=== PATIENT | male | born 1945 | race Caucasian/White ===

== ENCOUNTER 2016-12-19 09:55 | Emergency (ER) | payer MEDICARE, OTHER ==
[~2016-12-19] VITALS: Ht 185.4 cm; Wt 122.7 kg
[~2016-12-19 09:55] MED LIST: CARV6.252 PO; LISI30TA5 PO; LORA0.5T PO; OMPR20CCR PO; SIMV20TA4 PO; Tylenol PO
--- NOTE | 2016-12-19 10:05 | ED.REPORT ---
HPI-Trauma Minor / Fall Date of Service Dec 19, 2016 ED Provider: Dr. Harris Pt is a 71 year old male with a hx of HTN and CAD presenting to the ED after falling while getting onto his crabbing boat just prior to arrival. His family is concerned that he has decreased level of consciousness. Pt reports having a few beers this morning. He complains of left leg numbness and tingling and LE weakness. He reports that his legs gave out as he was stepping on the boat, and he fell forward onto the boat. Medics report that a 12 lead EKG in the field shows RBBB. He denies losing consciousness, neck pain, or any other symptoms at this time. Pt is currently being treated for a staph infection. Nursing Notes Stated Complaint: DECREASE LEVEL OF CONSCIOUSNESS Chief Complaint: Decreased level of consciousness Nursing Notes Reviewed: Yes Allergies: Coded Allergies: Aminoglycosides (Verified Allergy, Severe, 04/16/09) bacitracin (Verified Allergy, Severe, 04/16/09) neomycin (Verified Allergy, Severe, 12/17/09) polymyxin B (Verified Allergy, Severe, 04/16/09) Uncoded Allergies: benedryl (Allergy, Unknown, "I get HTN and nose bleeds"., 04/16/04) Scheduled ([Tylenol]) 500 MG PO DAILY 3 to 6 per day prn Carvedilol (Carvedilol) 6.25 Mg Tablet 6.25 MG PO BID Lisinopril (Lisinopril) 30 Mg Tablet 30 MG PO DAILY Omeprazole (Prilosec) 20 Mg Capcr 20 MG PO BID Simvastatin (Simvastatin) 20 Mg Tablet 20 MG PO HS Scheduled PRN Lorazepam (Lorazepam) 0.5 Mg Tablet 0.5 MG PO TID PRN PRN neck pain General Time Seen by MD: 10:05 Chief Complaint Fall Hx Obtained From: Patient, EMS Arrived By: Ambulance Onset Occurred: Just prior to arrival Symptom Duration: Since onset Caused by: Fall on ground Location: No Neck Severity: Current: No pain currently Severity: Maximum: No pain Recent Healthcare: No recent doctor visit, No recent hospitalization Similar Sx Previous: No Risk Factors Nexus C-Spine Criteria No post midline tendernes Head CT Imaging Inclusion Criteria: >/= 16 yo age Presentation w/in 24 hrs. Patient Presents WITHOUT: Loss of Conciousness, PostTraumatic Amnesia, PROCEED W/ CONSIDERATIONS Consider Non Contrast CT for: >/= 60 yo Age WITHOUT LOC WITHOUT PostTrauma AmnesiNo Severe Headache, No Vomiting RF Statements: Risk factors reviewed Past Medical History Past Medical History Coronary artery disease Hypertension Borderline diabetic Past Surgical History denies Family History Noncontributory Smoking History Never Smoker Social History Other Social History: Good social support, , Local resident Ambulatory Status Independent Review of Systems Musculoskeletal: Denies: Neck pain Neurologic: Reports: Change LOC, Weakness, Denies: Headache Complete sys rev & neg: except as marked. Physical Exam Initial Vital Signs Vital Signs (First) Date Time Temp Pulse Resp B/P Pulse Ox O2 Delivery O2 Flow Rate FiO2 12/19/16 10:11 78 14 126/79 97 Room Air Initial VS: Reviewed ENT: Mucous membranes moist, Conjunctiva normal, No scleral icterus Respiratory: Breath sounds normal, Clear to auscultation, No respiratory distress Cardiovascular: Regular rate & rhythm, Heart sounds normal, Intact distal pulses Abdomen / GI: Soft, Non-tender, No guarding, No rebound, No distention Extremities: Vascular intact, Neuro intact, No swelling, No tenderness Neurologic: Alert, Oriented, Nonfocal Psychiatric: Mood/affect normal, Behavior normal, Normal thought content General/Constitutional: Awake, Alert, Well appearing Behavior: Positive: Appears intoxicated Neck: Atraumatic, Supple, No meningismus, Full range of motion, No adenopathy, No swelling, Non-tender, No midline vertebral tend Head / Eyes: Atraumatic, Normocephalic, PERRL No evidence of head trauma Skin: Atraumatic, Color NL, No rash, Warm, Dry, Intact Superficial abrasions over left knee Neurologic: Oriented X3, No motor deficits, No sensory deficits, CN II - XII intact Slightly slurred speech. Strength 5/5 all extremities. Interpretation & Diagnostics Interpretation & Diagnostics: Blood Alcohol 284 Lab Results Interpretation Result Diagram: 12/19/16 1059 12/19/16 1059 Test 12/19/16 10:59 12/19/16 11:00 White Blood Count 6.5th/mm3 (3.8-10.1) Red Blood Count 4.36mil/mm3 (4.40-5.80) Hemoglobin 14.5g/dL (13.8-17.2) Hematocrit 43.2% (41.0-50.0) Mean Corpuscular Volume 99.1fL (81-100) Mean Corpuscular Hemoglobin 33.3pg (27.0-35.0) Mean Corpuscular Hemoglobin Concent 33.6% (32.0-37.0) Red Cell Distribution Width 13.1% (12.3-15.4) Platelet Count 217bil/L (150-400) Neutrophils (%) (Auto) 47.9% (40-74) Lymphocytes (%) (Auto) 42.0% (14-46) Monocytes (%) (Auto) 6.5% (4-12) Eosinophils (%) (Auto) 2.9% (0-5) Basophils (%) (Auto) 0.5% (0-3) Prothrombin Time 10.6sec (8.1-12.5) Prothromb Time International Ratio 0.99ratio Sodium Level 138mEq/L (134-144) Potassium Level 4.1mEq/L (3.5-5.2) Chloride Level 99mEq/L (97-108) Carbon Dioxide Level 21mmol/L (18-29) Blood Urea Nitrogen 24mg/dL (8-27) Creatinine 1.11mg/dL (0.76-1.27) Estimat Glomerular Filtration Rate 69mL/min (>59) Glucose Level 123mg/dL (60-99) Calcium Level 9.2mg/dL (8.5-10.1) Total Bilirubin 0.4mg/dL (0.0-1.2) Aspartate Amino Transf (AST/SGOT) 45U/L (0-50) Alanine Aminotransferase (ALT/SGPT) 36U/L (0-44) Alkaline Phosphatase 48U/L (25-160) Total Protein 7.5g/dL (6.4-8.4) Albumin 3.7g/dL (3.4-5.0) Hold [place] Top Tube Received (Received) ECG Interpretation ECG Interpretation: RBBB. Unchanged from old EKG. Time: 10:23 Interpreted by: ED physician Normal ECG Interpretation: Normal rate (78), Normal sinus rhythm X-Ray Interpretation Xray Interpretation: IMPRESSION: 1. No fracture or subluxation. 2. Mild osteoarthritic changes in the medial compartment. 3. Nonspecific chondrocalcinosis may reflect CPPD arthropathy. Dictated by: Daquan Jacobs M.D. on 12/19/2016 at 11:02 X-Ray Ordered: Knee left Interpretation / Wet Read by: Interpret - Radiologist CT Head Interpretation IMPRESSION: 1. No acute intracranial abnormality. 2. Mild chronic white matter small vessel ischemic changes and cerebral volume loss. Dictated by: Daquan Jacobs M.D. on 12/19/2016 at 10:42 Study: Head CT no contrast Interpretation / Wet Read by: Interpret - Radiologist CT C-Spine Interpretation IMPRESSION: 1. No fracture or subluxation. 2. Multilevel degenerative changes of the cervical spine including mild to moderate degenerative disc disease inferiorly. Dictated by: Daquan Jacobs M.D. on 12/19/2016 at 10:45 Study type: CT no contrast Interpretation / Wet Read by: Interpret - Radiologist Re-Eval/Medical Decision Med Decision/Clinical Course 71-year-old male history of alcohol abuse presenting as ground-level fall while intoxicated on his crabbing boat. Unknown loss of consciousness. Denies any chest pain or cardiac prodrome. Patient was intoxicated but alcohol level was 270 on arrival. After 4 hours of observation he was ambulatory with only his chronic left leg weakness as difficulty. His labs are unremarkable. Patient refused further care and requests to go home. He was discharged home in the care of his who is completely sober and agreed to stay with patient. Advised to return if he has any new or worsening headache, neurological deficits, difficulty ambulating, since symptoms are gone which are all, any other new or worsening symptoms. Re-Evaluation/Progress #1: Time of Eval: 10:45 Patient Status: Condition improved Re-Evaluation/Progress Note: Spoke to the pt's about his alcohol use. She would like him to seek treatment. He states that he is an alcoholic and does not want to seek treatment. Re-Evaluation/Progress #2: Time of Eval: 11:20 Patient Status: Condition improved Re-Evaluation/Progress Note: Discussed CT and x ray results and plan for discharge. Pt understands and agrees with plan. Re-Evaluation/Progress #3: Time of Eval: 13:34 Patient Status: Condition improved Re-Evaluation/Progress Note: Discussed plan for MRI. Re-Evaluation/Progress #4: Time of Eval: 14:24 Patient Status: Condition improved Re-Evaluation/Progress Note: The pt reports that he is unable to go into the MRI machine due to chronic shoulder pain. He reports that he is unable to keep his arm by his side for long enough to go in the MRI machine. Re-Evaluation/Progress #5: Time of Eval: 14:48 Patient Status: Condition improved Re-Evaluation/Progress Note: Pt insists that he wants to go home instead of getting an MRI. Pt is ambulatory and ready to go home. Consultation : Call Returned at: 13:30 Note: Consultation with physical therapy. He recommends an MRI due to left sided weakness. Counseled Regarding: Diagnosis, Lab results, Need for follow-up, When/why to return to ED Discharge & Departure Impression: Primary Impression: Fall from ground level Additional Impressions: Head trauma Encounter type: initial encounter Qualified Code: S09.90XA - Unspecified injury of head, initial encounter Alcohol intoxication Complication of substance-induced condition: uncomplicated Qualified Code: F10.120 - Alcohol abuse with intoxication, uncomplicated Disposition: Home Discharge Condition All VS Reviewed: Yes Condition: Improved Patient Instructions: Concussion (ED) Additional Instructions: Return to the emergency room if you develop any new or worsening symptoms such as confusion, headaches, vomiting, numbness, weakness, tingling, or fevers. Follow up with your primary care doctor to for resources to help you stop drinking. Return to the ER with any symptoms of alcohol withdrawal such as shaking, confusion or seizures. Referrals: Houston Marshall MD (PCP) Hugh Todd MD Attestation Portions of this note were transcribed by Danika Graf. I, Dr. Harris personally performed the history, physical exam and medical decision-making; I reviewed and confirmed the accuracy of the information in the transcribed note. Signed by: Mauricio Zaldivar, 12/19/2016 at 1500. copies to: Hugh Todd MD; Houston Marshall MD, Ben M MD Dec 19, 2016 10:05 DANIKA GRAF Dec 19, 2016 10:16
[2016-12-19 10:11] VITALS: BP 126/79; PULSE 78; RESP 14; O2SAT 97
[2016-12-19] MEDS ORDERED: 0.9% Sodium Chloride 1,000 ML IV ONE (10:14)
--- NOTE | 2016-12-19 10:52 | DRSVH ---
PROCEDURE: CT BRAIN WITHOUT CONTRAST ([id number]) INDICATIONS: head trauma TECHNIQUE: Noncontrast 4.5 mm thick angled axial sections acquired from the foramen magnum to the vertex, with c oronal reformats. COMPARISON: None. FINDINGS: Image quality: Excellent. CSF spaces: Basal cisterns are patent. No extra-axial fluid collections. The ventricles are symmet dionte in size and shape. There is mild cerebral volume loss, with resultant ventricular and sulcal pro minence. Brain: No intracranial hemorrhage, mass, or mass effect. There are subcortical, periventricular and deep white matter hypodensities consistent with mild chronic small vessel ischemic changes. There i s intracranial internal carotid artery atherosclerosis. Skull and face: Calvarium and visualized facial bones appear intact, without suspicious lesions. Sinuses: Visualized sinuses and mastoids are clear. IMPRESSION: 1. No acute intracranial abnormality. 2. Mild chronic white matter small vessel ischemic changes and cerebral volume loss. Dictated by: Daquan Jacobs M.D. on 12/19/2016 at 10:42 Approved by: Daquan Jacobs M.D. on 12/19/2016 at 10:45
--- NOTE | 2016-12-19 10:55 | DRSVH ---
PROCEDURE: CT CERVICAL SPINE WITHOUT CONTRAST ([id number]) INDICATIONS: head trauma TECHNIQUE: Noncontrast 3 mm thick sections acquired from the skull base to the T4 level. Sagittal and coronal r eformats were then constructed. For radiation dose reduction, the following was used: automated exp osure control, adjustment of mA and/or kV according to patient size. COMPARISON: None. FINDINGS: Image quality: There is mild motion artifact. Bones: No fractures or dislocations. There is multilevel disc space narrowing in the cervical spine including mild/moderate narrowing inferiorly. There is also mild multilevel uncovertebral and facet joint arthropathy. There is moderate degeneration at the atlantoaxial joint. Visualized superior r ibs are intact. Soft tissues: Prevertebral soft tissues are normal in thickness. No paravertebral hematomas. No ap ical pneumothoraces. IMPRESSION: 1. No fracture or subluxation. 2. Multilevel degenerative changes of the cervical spine including mild to moderate degenerative dis c disease inferiorly. Dictated by: Daquan Jacobs M.D. on 12/19/2016 at 10:45 Approved by: Daquan Jacobs M.D. on 12/19/2016 at 10:47
[2016-12-19 11:06] LABS: BASOPHILS % (AUTO) 0.5 % (0-3); EOSINOPHILS % (AUTO) 2.9 % (0-5); MONOCYTES % (AUTO) 6.5 % (4-12); Mean Corpuscular Hemoglobin 33.3 pg (27.0-35.0); Mean Corpuscular Volume 99.1 fL (81-100); NEUTROPHILS % (AUTO) 47.9 % (40-74); Platelet Count 217 bil/L (150-400)
--- NOTE | 2016-12-19 11:19 | DRSVH ---
PROCEDURE: X-RAY LEFT KNEE, ONE OR TWO VIEWS ([id number]) INDICATIONS: trauma TECHNIQUE: 3 views of the knee were acquired. COMPARISON: None. FINDINGS: Bones: No fractures or dislocations. There is mild joint space narrowing in the medial compartment with mild osteophytosis. No suspicious bony lesions. Soft tissues: There is a small joint effusion. There is chondrocalcinosis. IMPRESSION: 1. No fracture or subluxation. 2. Mild osteoarthritic changes in the medial compartment. 3. Nonspecific chondrocalcinosis may reflect CPPD arthropathy. Dictated by: Daquan Jacobs M.D. on 12/19/2016 at 11:02 Approved by: Daquan Jacobs M.D. on 12/19/2016 at 11:12
[2016-12-19 11:22] LABS: INR 0.99 ratio
[2016-12-19 15:01] VITALS: BP 126/79; PULSE 78; RESP 14; O2SAT 97
== END 2016-12-19 15:02 | disposition home or self-care (01) ==
LOC: EDSEX 09:55 → EDBD 09:55 → SED 09:55
DX: S09.90XA Unspecified injury of head, initial encounter (principal); S80.212A Abrasion, left knee, initial encounter; F10.120 Alcohol abuse with intoxication, uncomplicated; R53.1 Weakness; W19.XXXA Unspecified fall, initial encounter; Y93.89 Activity, other specified; Y92.9 Unspecified place or not applicable; Y99.8 Other external cause status; Z88.1 Allergy status to other antibiotic agents; Z88.8 Allergy status to other drugs, medicaments and biological substances; I25.10 Atherosclerotic heart disease of native coronary artery without angina pectoris; R73.03 Prediabetes
CPT/HCPCS: 36415; 70450; 72125; 73560; 80053; 81002; 82075; 85025; 85610; 93005; 97162; 99285; J7030